=== PATIENT | female | born 1955 | race Caucasian/White ===

== ENCOUNTER 2020-11-10 13:30 | Outpatient (RCR) | payer OTHER, SELFPAY ==
--- NOTE | 2020-10-29 16:21 | PTOPEVAL ---
INITIAL PHYSICAL THERAPY EVALUATION and PLAN OF CARE Thank you for referring Kimberly Mccoy to [facility].? Kimberly is scheduled to be seen for physical therapy? 2x/week for 4 weeks. Please review, sign, date and return this plan of care KRISTINE. I agree with and certify that the following plan of care is medically necessary. Referring Physician Date Admitting Provider: Attending Provider: Brianne Mansfield, Referring Provider: *PT Outpatient Evaluation Start: 10/29/20 15:16 Freq: Status: Active Protocol: Document 10/29/20 15:15 ARACELIS (Rec: 10/29/20 16:20 ARACELIS [id number]) Therapy Assessment Status Assessment Status Assessment Status Evaluation Outpatient Past Medical History Past Medical History Source of Past Medical History Recalled from Previous Visit, Confirmed with Patient/Family Neurological History Hx Other Neurological Disorders Yes: concussion 2018 Respiratory History Hx Other Respiratory Disorders Yes: quit smoking x 1 month Gastrointestinal History Hx Gastroesophageal Reflux Disease Yes: OTC holistic meds Genitourinary History Hx Genitourinary Disorders No Significant History Musculoskeletal History Hx Fibromyalgia Yes HEENT History Hx Tonsillectomy Yes Hx Other HEENT Disorders Yes: tinnitus Psychosocial History Hx Anxiety Yes Hx Other Psychiatric Disorders Yes: panic attacks Evaluation Information Problem Diagnosis neck pain, upper back pain Onset off/on x 3 months Subjective Information upon waking up/sitting up - Query Text:As Reported By Patient/ nerve pain shooting up into Family head - has a mild panic attack - can calm herself down with deep breathing Sleeping disturbed - 10-11, then 4-5 Did do sleep study Will hear some crackling sensation with neck movements. Unsteady on feet at times. Sleeps on back - did have travel pillow for support but it fell apart Prior Level of Function Activity Level (Last 3 Months) Hand Dominance Right Medications Home Meds (Include: OTC, RX, Vitamins, riprodon, guifiansen, benadryl Herbals, Dose, Route,and Frequency) Query Text:Home Med Entries Will No Longer Recall From Past Visits. Home Meds Must Be Re-entered With Each Visit. Comments Additional Prior Level of Function recreation - watching movies - Comments limited time frame due to eyes and head discomfort unable to focus on reading Pain Assessme
--- NOTE | 2020-11-10 12:19 | PCPTNOTE ---
Patient called & cancelled scheduled appointment this date due to not feeling well.
--- NOTE | 2020-11-15 13:47 | PCPTNOTE ---
Patient called & cancelled scheduled appointment this date due to headache.
--- NOTE | 2020-11-17 09:33 | PCPTNOTE ---
Patient called & cancelled scheduled appointment this date due to unknown reason. Pt may have cancelled the rest of her appointments as well. Phone call made to find out pt's status. Message left.
--- NOTE | 2020-11-22 15:37 | PCPTNOTE ---
Kimberly did not return my phone call. Evidently - she did cancel the remaining of her PT visits. Will d/c from PT.
--- NOTE | 2020-11-22 15:38 | PCPTNOTE ---
PHYSICAL THERAPY DISCHARGE SUMMARY Admitting Provider: Attending Provider: Brianne Mansfield, Patient:Kimberly Mccoy Date of :1955 Kimberly has not returned for any further treatments since 11/08/2020. She did phone 11/10, 11/15, and 11/17/2020 to cancel her scheduled appointments. On 11/17/2020 she canceled the remaining appointments, therefore she will be discharged at this time. Kimberly?s initial visit was on 10/29/2020 15:00 and she had a total of 3 visits. The goals have been partially met. Thank you for referring Kimberly to [facility]. Please review, sign, date and return this discharge summary KRISTINE. I have been updated about Kimberly's current status and I agree with discharge from the above service at this time. Referring Physician Date
== END 2020-11-25 11:01 | disposition home or self-care (01) ==
LOC: ANHHIPT 13:30
PROVIDERS: Visit Provider Internal Medicine
DX: M54.2 Cervicalgia (principal); M54.9 Dorsalgia, unspecified
CPT/HCPCS: 97110; 97140; 97162

== ENCOUNTER 2020-12-05 13:41 | Emergency (ER) | payer OTHER, SELFPAY ==
[2020-12-05 13:50] VITALS: BP 107/83; PULSE 94; RESP 17; TEMP 36.4; O2SAT 95
[2020-12-05 14:12] LABS: Basophils Absolute Auto 0.1 K/mm3 (0.0-0.1); Basophils Percent Auto 0.5 % (0.2-1.2); Eosinophils Absolute Auto 0.3 K/mm3 (0-0.3); Eosinophils Percent Auto 2.7 % (0-4.4); Hemoglobin 12.8 g/dL (12.0-15.0); Immature Granulocyte Absolute 0.13 K/mm3 (0.00-0.031); Immature Granulocyte Percent A 1.2 % (0-0.5); Lymphocytes Absolute Auto 1.34 K/mm3 (0.9-3.2); Lymphocytes Percent Auto 12.1 % (18.3-44.2); Mean Corpuscular HGB Conc 32.8 g/dl (32-36); Mean Corpuscular Hemoglobin 27.4 pg (26-34); Mean Corpuscular Volume 83.5 fl (80-100); Mean Platelet Volume 8.9 fl (7.4-10.4); Neutrophils Absolute Auto 8.2 K/mm3 (1.3-6.7); Neutrophils Percent Auto 74.5 % (45.5-73.1); Platelet Count Result 463 k/mm3 (150-375); Red Blood Count 4.67 M/mm3 (4.2-5.4); Red Cell Distribution Width 13.8 % (11.5-14.5)
[2020-12-05 14:23] LABS: Atypical Lymphocytes Present; Platelet Estimate Increased (Adequate)
[2020-12-05 14:25] LABS: Alanine Aminotransferase 84 U/L (4-35); Albumin Level 3.2 g/dL (3.5-5.1); Alkaline Phosphatase 225 U/L (38-126); Anion Gap 7 mmol/L (8-16); Aspartate Amino Transferase 110 U/L (14-36); Bilirubin,Total 1.3 mg/dL (0.2-1.3); Blood Urea Nitrogen 14 mg/dL (7-17); Calcium 9.3 mg/dL (8.4-10.2); Carbon Dioxide 27 mmol/L (22-30); Chloride 97 mmol/L (98-107); Estimated CRCL calculation 78 ml/min; Estimated Glomerular Filt Rate > 60; Glucose 132 mg/dL (65-105); Potassium 4.3 mmol/L (3.4-5.0); Sodium 131 mmol/L (137-145)
[2020-12-05 14:26] LABS: Add Urine Microscopic? YES; Appearance Urine Clear (Clear); Bacteria Urine 1+ /hpf; Bilirubin Urine Negative (Negative); Blood Urine Negative (Negative); Color Urine Yellow (Yellow); Glucose Urine UA Negative (Negative); Ketones Urine Negative (Negative); Leukocyte Esterase Ur Trace LEU/UL (Negative); Mucus Urine Heavy /lpf; Nitrate Urine Negative (Negative); Protein Urine 1+ mg/dL (Negative); Specific Grav Ur 1.013 (1.001-1.035); Squamous Epithelial Cell Urine Many /hpf (Few); WBC Urine 0-3 /hpf
[2020-12-05 14:30] VITALS: BP 103/69; PULSE 89; RESP 19; TEMP 36.3; O2SAT 95
[2020-12-05 14:39] LABS: Amphetamine Screen Urine Negative (Negative); Barbiturate Screen Urine Negative (Negative); Benzodiazepines Screen Urine Positive (Negative); Cannabinoid Screen Urine Negative (Negative); Cocaine Screen Urine Negative (Negative); Methadone Screen Urine Negative (Negative); Opiate Screen Urine Negative (Negative); Phencyclidine Screen Urine Negative (Negative)
--- NOTE | 2020-12-05 15:08 | ED.GENADULT ---
HPI - General Adult General Chief complaint: Unspecified Stated complaint: multiple complaints Time Seen by Provider: 12/05/20 14:05 Source: patient Mode of arrival: ambulatory Limitations: no limitations History of Present Illness HPI narrative: A 65-year-old female comes into the emergency department with multiple complaints. Patient states that she is feeling very rundown, very tired. She notes that she has been slower to move to do anything lately. Patient states she has been sleeping a lot. She notes that she is waking up with anxiety. She states that she does not want to take any medications because she feels like she does not want to have a prolonged effects from them. Patient does deny suicidal or homicidal ideations. Related Data Home Medications Medication Instructions Recorded Confirmed No Home Medications 12/05/20 12/05/20 Allergies Allergy/AdvReac Type Severity Reaction Status Date / Time avocado Allergy Anaphylactic Verified 12/05/20 14:49 Shock ciprofloxacin [From Cipro] Allergy Anaphylactic Verified 12/05/20 14:49 Shock grapefruit Allergy Anaphylactic Verified 12/05/20 14:49 Shock tree nut Allergy Anaphylactic Verified 12/05/20 14:49 Shock Review of Systems Review of Systems: Narrative: CONSTITUTIONAL: Denies fever, chills, or sweats. Endorses fatigue. EYES: Denies visual changes, redness, or discharge. ENT: Denies rhinorrhea, congestion, sore throat, or otalgia. CARDIOVASCULAR: Denies chest pain, palpitations, or edema. RESPIRATORY: Denies cough or dyspnea. GASTROINTESTINAL: Denies abdominal pain, nausea, vomiting, or diarrhea. GENITOURINARY: Denies dysuria or hematuria. SKIN: Denies rash or itching. MUSCULOSKELETAL: Denies back pain, joint pain, or myalgia. NEUROLOGIC: Denies headache, numbness, dizziness, or weakness. PSYCHIATRIC: Denies anxiety or depression. FORMERLY [facility], 1928–1983 Social History Social History Gender identity (if verbalized by the patient): Female Exam Narrative: Exam Narrative: GENERAL: Well-appearing, well-nourished, and in no acute distress. HEAD: Normocephalic, atraumatic. EYES: PERRLA and EOMI. ENT: Nares clear, no rhinorrhea or epistaxis. Mucous membranes moist. Oropharynx without tonsillar hypertrophy exudate or other lesions. Bilateral TMs pearly lopez nonbulging NECK: Supple. No adenopathy or masses. No carotid bruits or JVD CHEST: Clear to auscultation. No respiratory distress. No wheezes rales or rhonchi HEART: Regular rate and rhythm. No murmur heard. Normal peripheral pulses. ABDOMEN: Soft, nontender, nondistended, normal active bowel sounds. EXTREMITIES: Normal range of motion. No edema. SKIN: Warm, dry, no rash. NEURO: No focal deficits. Alert and oriented x3. PSYCH: Depressed mood, flat affect. Course Reevaluation(s) Reevaluation #1: Patient resting comfortably at this time. Patient has been medically cleared, unfortunately have not found a reason for the patient's malaise and fatigue. She generally seems to be pretty depressed. Patient did meet with the crisis unit person. They have provided the patient with resources for outpatient follow-up. I have also reinforced this with her that I think she needs to call someone and see her primary care doctor about getting started on an antidepressant. Time: 18:17 Vital Signs Vital signs: Vital Signs Temperature 36.4 C 12/05/20 13:50 Pulse Rate 94 12/05/20 13:50 Respiratory Rate 17 12/05/20 13:50 Blood Pressure 107/83 12/05/20 13:50 Pulse Oximetry 95 12/05/20 13:50 Temperature 36.6 C 12/05/20 17:31 Pulse Rate 59 L 12/05/20 17:31 Respiratory Rate 18 12/05/20 17:31 Blood Pressure 95/70 L 12/05/20 17:31 Pulse Oximetry 97 12/05/20 17:31 Medical Decision Making MDM Narrative Medical decision making narrative: In brief this 65-year-old female came into the emergency department with complaints of generalized
[2020-12-05 15:22] LABS: Acetaminophen < 10 ug/mL (10-30); Ethanol < 10 mg/dL (<10); Salicylate < 1.0 mg/dL (2-20)
[2020-12-05 15:31] VITALS: BP 95/70; PULSE 62; RESP 19; O2SAT 94
[2020-12-05 16:31] VITALS: BP 93/68; PULSE 69; RESP 14; TEMP 36.3; O2SAT 95
[2020-12-05 17:31] VITALS: BP 95/70; PULSE 59; RESP 18; TEMP 36.6; O2SAT 97
[2020-12-05 18:40] VITALS: BP 99/69; PULSE 62; RESP 17; TEMP 36.2; O2SAT 96
== END 2020-12-05 18:40 | disposition home or self-care (01) ==
PROVIDERS: Emergency Medicine; Emergency Provider Emergency Medicine; PCP Internal Medicine
DX: F32.9 Major depressive disorder, single episode, unspecified (principal)
CPT/HCPCS: 36415; 80053; 80307; 81001; 83735; 84443; 85025; 99284

== ENCOUNTER 2021-02-15 10:00 | Outpatient (RCR) | payer MEDICAID, OTHER, SELFPAY ==
--- NOTE | 2021-01-13 15:12 | PTOPEVAL ---
INITIAL PHYSICAL THERAPY EVALUATION and UPDATED PLAN OF CARE Thank you for referring Kimberly Mccoy to [facility].? Kimberly is scheduled to be seen for physical therapy? 1x/week for 4 weeks. Please review, sign, date and return this plan of care KRISTINE. I agree with and certify that the following plan of care is medically necessary. Referring Physician Date Admitting Provider: Attending Provider: PHYSICIAN NOT ON STAFF Referring Provider: Brianne Mansfield, MD *PT Outpatient Evaluation Start: 01/13/21 14:03 Freq: Status: Active Protocol: Document 01/13/21 13:50 ARACELIS (Rec: 01/13/21 15:12 ARACELIS [id number]) Therapy Assessment Status Assessment Status Assessment Status Evaluation Outpatient Past Medical History Past Medical History Source of Past Medical History Recalled from Previous Visit, Confirmed with Patient/Family Neurological History Hx Migraine Yes Hx Other Neurological Disorders Yes: concussion Cardiovascular History Hx Hypercholesterolemia Yes Respiratory History Hx Respiratory Disorders No Significant History Gastrointestinal History Hx Diverticulitis Yes Hx Gastroesophageal Reflux Disease Yes Hx Hernia Yes Hx Other Gastrointestinal Disorders Yes: chronic constipation Genitourinary History Hx Genitourinary Disorders No Significant History Musculoskeletal History Hx Arthritis Yes Hx Fibromyalgia Yes Hematological History Hx Other Hematological Disorders Yes: chronic viral hepatitis Endocrine History Hx Endocrine Disorders No Significant History HEENT History Hx Meniere's Syndrome Yes Hx Tonsillectomy Yes Hx Other HEENT Disorders Yes: Tinnitis - last few month Integumentary History Hx Skin Disorders No Significant History Reproductive History Hx Reproductive Disorders No Significant History Psychosocial History Hx Anxiety Yes Hx Depression Yes Pain History History of Any Previous or Ongoing No Significant History Instance of Pain Anesthesia History Hx Anesthesia Reactions No Significant History Other History Hx Other Medical Conditions Yes: Tietze's syndrome Evaluation Information Problem Diagnosis imbalance, vertigo Onset 2-3 months Subjective Information Dizziness is always there Query Text:As Reported By Patient/ When walking - watches Family everything, goes slow, really watching where she is going. Doesn't want to fall. When she lies down on her L side - not very dizzy but is dizzy when go
--- NOTE | 2021-02-15 11:11 | PTOPEVAL ---
PHYSICAL THERAPY DISCHARGE SUMMARY Thank you for referring Kimberly Mccoy to [facility].? Kimberly was seen x 5 visits. Source of dizziness was not fully determined, but she did respond positively to R Eply maneuver and she did improve with balance retesting. She is ready for discharge from PT at this time. I agree with Kimberly's discharge from PT. Referring Physician Date Admitting Provider: Attending Provider: PHYSICIAN NOT ON STAFF Referring Provider: Brianne Mansfield, Therapy Assessment Status Assessment Status Assessment Status Discharge Evaluation Information Problem Diagnosis imbalance, vertigo Subjective Information Kimberly reports that she didn't Query Text:As Reported By Patient/ sleep well last night. Family Currently having headache on L side - usually has headaches on the L side - rarely on the R side. Hoping to see a neurologist about her headaches. Dizziness still present, balance is off. Increased pain from fibromyalgia lately. Hasn't returned to walking again - friends aren't available. Limited with exercise - head will spin - doesn't feel right . To have cataract surgery in February. She also had c/o's intercostal pain - more on R side of rib cage. Pain Assessment Self Report Self Report Pain Level 0 Pain Score Pain Score 0: Self Report Palpation Assessment Palpation Palpation decreased mobility R rib cage, mild suboccipital tightness - bilat. Did not assess cranial mobility due to recent surgery for temporalis arteritis. Balance Assessment Time Up Go (TUG) Timed Up and Go Test (TUG) (Seconds) 14 Assistive Devices None Gait Assessment Gait Pattern Assessment Other Gait Observations slower gait pattern - no cane present this date - steady - no loss of balance Vestibular Evaluation Vestibular Medical Information Standardized Tests Dizziness Handicap Inventory Standardized Test Scores (Number 0-100) 94 Vestibular Balance Standing Balance: Firm Surface Eyes Open WNL for 30 Seconds Standing Balance: Firm Surface Eyes WNL Closed for 30 Seconds Standing Balance: Foam Surface Eyes Open WNL for 30 Seconds Standing Balance
== END 2021-02-15 12:01 | disposition home or self-care (01) ==
LOC: ANHPT 10:00
PROVIDERS: PCP Internal Medicine; Referring Provider Internal Medicine
DX: R42 Dizziness and giddiness (principal); R26.89 Other abnormalities of gait and mobility
CPT/HCPCS: 97110; 97140; 97162

== ENCOUNTER 2021-06-08 13:50 | Outpatient (RCR) | payer OTHER, SELFPAY ==
--- NOTE | 2021-06-08 15:25 | PTOPEVAL ---
PHYSICAL THERAPY EVALUATION - DISCHARGE SUMMARY Thank you for referring Kimberly Mccoy to [facility].? Kimberly was evaluated this date - given Michela maneuver for HEP. If Kimberly has difficulty with this following L eye cataract surgery she is to call. I agree with the above. Referring Physician Date Admitting Provider: Attending Provider: Brianne Mansfield, Referring Provider: *PT Outpatient Evaluation Start: 06/08/21 14:09 Freq: Status: Active Protocol: Document 06/08/21 14:08 ARACELIS (Rec: 06/08/21 15:25 ARACELIS [id number]) Therapy Assessment Status Assessment Status Assessment Status Evaluation Outpatient Past Medical History Past Medical History Source of Past Medical History Recalled from Previous Visit, Confirmed with Patient/Family Neurological History Hx Migraine Yes Hx Other Neurological Disorders Yes: 2 concussions Respiratory History Hx Respiratory Disorders No Significant History Gastrointestinal History Hx Diverticulitis Yes Hx Gastroesophageal Reflux Disease Yes Hx Hernia Yes Hx Other Gastrointestinal Disorders Yes: chronic constipation Genitourinary History Hx Genitourinary Disorders No Significant History Musculoskeletal History Hx Arthritis Yes Hx Fibromyalgia Yes Endocrine History Hx Endocrine Disorders No Significant History HEENT History Hx Cataracts Yes: surgery for L eye 06/09/21 , R eye already done Hx Meniere's Syndrome Yes Hx Tonsillectomy Yes Hx Other HEENT Disorders Yes: Tinnitis - comes and goes Integumentary History Hx Skin Disorders No Significant History Reproductive History Hx Reproductive Disorders No Significant History Psychosocial History Hx Anxiety Yes Hx Depression Yes Pain History History of Any Previous or Ongoing No Significant History Instance of Pain Anesthesia History Hx Anesthesia Reactions No Significant History Other History Hx Other Medical Conditions Yes: Tietze's syndrome Evaluation Information Problem Diagnosis vertigo Onset last couple of weeks Subjective Information Been having headaches - but Query Text:As Reported By Patient/ they are getting worse - then Family with the dizziness decreased tolerance. Been having some difficulty with focus of eyes - but did have a infection with R eye - which has cleared . Scheduled to have cataract surgery on L eye tomorrow.
== END 2021-07-20 13:21 | disposition home or self-care (01) ==
LOC: ANHHIPT 13:50
PROVIDERS: PCP Internal Medicine; Visit Provider Internal Medicine
DX: R42 Dizziness and giddiness (principal)
CPT/HCPCS: 97110; 97162

== ENCOUNTER 2021-07-22 14:32 | Outpatient (RCR) | payer OTHER, SELFPAY ==
--- NOTE | 2021-07-22 15:56 | PTOPEVAL ---
PHYSICAL THERAPY EVALUATION AND PLAN OF CARE 07-22-21 Thank you for referring Kimberly Mccoy to [facility] for the diagnosis' of headaches and vertigo.? She is scheduled to be seen for therapy? 2x /week for 3 weeks. Please review, sign, date and return this plan of care KRISTINE. I agree with and certify that the following plan of care is medically necessary. Referring Physician Date Attending Provider: Brianne Mansfield MD PT Outpatient Evaluation Start: 07/22/21 14:50 Document 07/22/21 14:40 DAVONTE (Rec: 07/22/21 15:49 DAVONTE [id number]) Assessment Status Evaluation Outpatient Past Medical History Past Medical History Source of Past Medical History Recalled from Previous Visit, Confirmed with Patient/Family Neurological History Hx Migraine Yes Hx Other Neurological Disorders Yes: 2 concussions Cardiovascular History Hx Other Cardiac Disorders Yes: reports cardiac flutters - cleared and OK Respiratory History Hx Respiratory Disorders No Significant History Gastrointestinal History Hx Diverticulitis Yes Hx Gastroesophageal Reflux Disease Yes Hx Hernia Yes Hx Other Gastrointestinal Disorders Yes: chronic constipation Genitourinary History Hx Genitourinary Disorders No Significant History Musculoskeletal History Hx Arthritis Yes: R hip Hx Fibromyalgia Yes Endocrine History Hx Endocrine Disorders No Significant History HEENT History Hx Cataracts Yes: surgery for L & R eye; to have additional surgery; vision good now Hx Meniere's Syndrome Yes Hx Tonsillectomy Yes Hx Other HEENT Disorders Yes: Tinnitis - comes and goes ; decreased hearing B ears; Menier's Integumentary History Hx Skin Disorders No Significant History Reproductive History Hx Reproductive Disorders No Significant History Psychosocial History Hx Anxiety Yes Hx Depression Yes Pain History History of Any Previous or Ongoing No Significant History Instance of Pain Anesthesia History Hx Anesthesia Reactions No Significant History Other History Hx Other Medical Conditions Yes: Tietze's syndrome Evaluation Information Problem Diagnosis headaches and vertigo Onset June 19, 2021 Prior Level of Function Activity Level (Last 3 Months) Occupation not working; Hand Dominance Right Activity of Daily Living Ability Independent Indoor/Home Mobility Independent Community Mobility Independent Stairs Ability
--- NOTE | 2021-08-22 16:05 | PCPTNOTE ---
PHYSICAL THERAPY DISCHARGE 08-22-21 Attending Provider: Brianne Mansfield MD Patient:Kimberly Mccoy Date of :1955 Ms. Mccoy has not returned for any further treatments since the evaluation on 07/22/2021, for the diagnosis of vertigo and headaches. Therefore she will be discharged at this time. Thank you for referring this patient to [facility]. Please review, sign, date and return this discharge summary KRISTINE. I have been updated about the patient's current status and I agree with discharge from the above service at this time. Referring Physician Date
== END 2021-08-23 09:09 | disposition home or self-care (01) ==
LOC: ANHPT 14:32
PROVIDERS: PCP Internal Medicine; Visit Provider Internal Medicine
DX: R42 Dizziness and giddiness (principal); R51.9 Headache, unspecified
CPT/HCPCS: 97162